=== PATIENT | male | born 1955 | race Caucasian/White ===

== ENCOUNTER 2021-08-02 10:35 | Inpatient (IN) | payer MEDICARE, OTHER ==
[~2021-08-02] VITALS: Ht 167.6 cm; Wt 92.1 kg
[~2021-08-02 10:35] MED LIST: ALPR0.5T PO; DIPH25ST4 PO; DULO20CA PO; OMEP20CA15 PO; ZOLP10TA2 PO
[2021-08-02 11:41] LABS: BASOPHILS % (AUTO) 0.7 % (0.0-2.0); HEMATOCRIT 46 % (39-51); HEMOGLOBIN 15.3 g/dL (13.5-17.5); LYMPHOCYTES # (AUTO) 0.7 K/uL (0.8-4.8); LYMPHOCYTES % (AUTO) 19.9 % (20.0-44.0); MEAN CORPUSCULAR HGB CONC 33 g/dl (31.0-36.0); MEAN CORPUSCULAR VOLUME 96 fL (80-96); MONOCYTES # (AUTO) 0.5 K/uL (0.1-1.30); MONOCYTES % (AUTO) 15.5 % (2.0-12.0); NEUTROPHILS # (AUTO) 2.3 K/uL (1.8-8.9); NEUTROPHILS % (AUTO) 63.9 % (43.0-81.0); PLATELET COUNT (AUTO) 128 K/uL (150-450); RED BLOOD CELL COUNT(AUTO) 4.79 MIL/uL (4.5-6.0); WHITE BLOOD COUNT (AUTO) 3.5 K/uL (4.3-11.0)
[2021-08-02 11:54] LABS: CALCIUM, SERUM 9.3 mg/dL (8.5-10.1); CARBON DIOXIDE 26 mmol/L (21-32); CHLORIDE 101 mmol/L (98-107); CREATININE 1.4 mg/dL (0.6-1.3); GLUCOSE 116 mg/dL (74-106); POTASSIUM 4.2 mmol/L (3.5-5.1); SODIUM SERUM 135 mmol/L (136-145); UREA NITROGEN, BLOOD 22 mg/dL (7-18)
[2021-08-02 12:00] LABS: ALANINE AMINOTRANSFERASE 93 U/L (12-78); ALBUMIN 3.8 g/dL (3.4-5.0); ALKALINE PHOSPHATASE 41 U/L (46-116); ASPARTATE AMINOTRANSFERASE 46 U/L (15-37); BILIRUBIN,DIRECT 0.2 mg/dL (0.0-0.2); BILIRUBIN,TOTAL 0.8 mg/dL (0.2-1.0); TOTAL PROTEIN, SERUM 7.9 g/dL (6.4-8.2)
[2021-08-02 13:03] LABS: LYMPHOCYTES % (MANUAL) 25 % (16-48); MONOCYTES % (MANUAL) 11 % (0-11.0); NEUTROPHILS % (MANUAL) 64 (42-76)
[2021-08-02] MEDS ORDERED: ACETAMINOPHEN ES 500 MG TABLET ONE (13:23)
[2021-08-02] MEDS ORDERED: ACETAMINOPHEN ES 500 MG TABLET PO ONE (13:30)
[2021-08-02] MEDS ORDERED: CEFTRIAXONE 1GM BAG (ER ONLY) 1 GM/50 ML PIGGYBACK IV ONE (14:00)
[2021-08-02] MEDS ORDERED: DOXYCYCLINE 100 MG VIAL ONE (14:03)
[2021-08-02] MEDS ORDERED: CEFTRIAXONE 1GM BAG (ER ONLY) 50 ML IV ONE (14:03)
[2021-08-02] MEDS: DOXYCYCLINE 100 MG in IV D5W 100 ML IV SCH ×3 (14:06→14:57)
[2021-08-02] MEDS ORDERED: IV NS 0.9% 500 ML IV ONE (14:30)
[2021-08-02] MEDS ORDERED: IV 1/2NS 1000 ML 1,000 ML IV PRN (16:00)
[2021-08-02] MEDS ORDERED: HYDROCODONE/APAP 5/325MG TABLET PO PRN (16:00)
[2021-08-02] MEDS ORDERED: NITROGLYCERIN 0.4 MG/TAB BOTTLE SL PRN (16:00)
[2021-08-02] MEDS ORDERED: MAG HYDROX/AL HYDROX/SIMETH 30 ML UDC PO PRN (16:00)
[2021-08-02] MEDS ORDERED: MORPHINE SULFATE INJ 2 MG/ML DISP.SYRIN IV PRN (16:00)
[2021-08-02] MEDS ORDERED: Z GUARD REMEDY 4 OZ OINT TP PRN (16:00)
[2021-08-02] MEDS ORDERED: MAGNESIUM HYDROXIDE 30 ML UDC PO PRN (16:00)
[2021-08-02] MEDS ORDERED: ONDANSETRON HCL/PF 4 MG/2 ML VIAL IVP PRN (16:00)
[2021-08-02 17:06] LABS: BILIRUBIN,URINE NEGATIVE (NEGATIVE); COLOR,URINE YELLOW (YELLOW); LEUKOCYTE ESTERASE ,URINE NEGATIVE (NEGATIVE); NITRITE, URINE NEGATIVE (NEGATIVE); PROTEIN,URINE TRACE mg/dl (NEGATIVE); UGLUCOSE NEGATIVE (NEGATIVE); UROBILINOGEN,URINE 0.2 EU/dL (0.2)
[2021-08-02 17:11] LABS: BACTERIA,URINE None seen /HPF (None Seen); MUCUS,URINE Many /LPF (None Seen); RBC,URINE 0-2 /HPF (0-2); SQUAMOUS EPITHELIAL CELL,UR 0-2 /HPF (None Seen); WBC,URINE 0-2 /HPF (0-3)
[2021-08-02 22:50] VITALS: BP 138/97
[2021-08-02] MEDS: ZOLPIDEM TARTRATE 5 MG TABLET PO PRN (23:23)
[2021-08-02] MEDS: ENOXAPARIN SODIUM 40 MG/0.4 ML DISP.SYRIN SQ SCH (23:26)
[2021-08-02] MEDS: ACETAMINOPHEN 325 MG TABLET PO PRN (23:55)
[2021-08-03] VITALS: BP 158/103
[2021-08-03 04:00] VITALS: BP 113/84
[2021-08-03 07:15] LABS: BASOPHILS % (AUTO) 0.5 % (0.0-2.0); EOSINOPHILS % (AUTO) 0.1 % (0.0-6.0); HEMATOCRIT 44 % (39-51); HEMOGLOBIN 14.7 g/dL (13.5-17.5); LYMPHOCYTES # (AUTO) 1.5 K/uL (0.8-4.8); LYMPHOCYTES % (AUTO) 42.7 % (20.0-44.0); MEAN CORPUSCULAR HGB CONC 34 g/dl (31.0-36.0); MEAN CORPUSCULAR VOLUME 96 fL (80-96); MONOCYTES # (AUTO) 0.6 K/uL (0.1-1.30); MONOCYTES % (AUTO) 15.6 % (2.0-12.0); NEUTROPHILS # (AUTO) 1.5 K/uL (1.8-8.9); NEUTROPHILS % (AUTO) 41.1 % (43.0-81.0); PLATELET COUNT (AUTO) 120 K/uL (150-450); RED BLOOD CELL COUNT(AUTO) 4.57 MIL/uL (4.5-6.0); WHITE BLOOD COUNT (AUTO) 3.5 K/uL (4.3-11.0)
[2021-08-03] MEDS: PANTOPRAZOLE 40 MG TABLET.DR PO SCH (07:30)
[2021-08-03 07:37] LABS: CALCIUM, SERUM 8.3 mg/dL (8.5-10.1); CREATININE 1.2 mg/dL (0.6-1.3); MAGNESIUM 1.8 mg/dL (1.8-2.4); PHOSPHORUS 3.7 mg/dL (2.5-4.9)
[2021-08-03] MEDS: DULOXETINE HCL 20 MG CAPSULE.DR PO SCH (08:16)
[2021-08-03] MEDS: CEFTRIAXONE 1 G in IV D5W 50 ML IV SCH (08:45)
[2021-08-03 09:16] LABS: BAND % (MANUAL) 1 % (0.0-5.0); LYMPHOCYTES % (MANUAL) 43 % (16-48); MONOCYTES % (MANUAL) 12 % (0-11.0); NEUTROPHILS % (MANUAL) 44 (42-76)
[2021-08-03] MEDS: AZITHROMYCIN 500 MG in IV D5W 250 ML IV SCH (09:50)
[2021-08-03 10:02] LABS: THYROID STIMULATING HORMONE 1.314 uIU/mL (0.358-3.74)
[2021-08-03 20:13] VITALS: BP 142/101
[2021-08-03] MEDS: ZOLPIDEM TARTRATE 5 MG TABLET PO PRN (21:22)
[2021-08-03] MEDS: ENOXAPARIN SODIUM 40 MG/0.4 ML DISP.SYRIN SQ SCH (21:22)
[2021-08-03 23:57] VITALS: BP 135/77
[2021-08-04 04:00] VITALS: BP 111/59
[2021-08-04 07:08] LABS: BASOPHILS % (AUTO) 0.4 % (0.0-2.0); EOSINOPHILS % (AUTO) 0.1 % (0.0-6.0); HEMATOCRIT 42 % (39-51); HEMOGLOBIN 13.9 g/dL (13.5-17.5); LYMPHOCYTES # (AUTO) 1.6 K/uL (0.8-4.8); LYMPHOCYTES % (AUTO) 48.3 % (20.0-44.0); MEAN CORPUSCULAR HGB CONC 33 g/dl (31.0-36.0); MEAN CORPUSCULAR VOLUME 95 fL (80-96); MONOCYTES # (AUTO) 0.4 K/uL (0.1-1.30); MONOCYTES % (AUTO) 12.2 % (2.0-12.0); NEUTROPHILS # (AUTO) 1.3 K/uL (1.8-8.9); PLATELET COUNT (AUTO) 126 K/uL (150-450); RED BLOOD CELL COUNT(AUTO) 4.37 MIL/uL (4.5-6.0); WHITE BLOOD COUNT (AUTO) 3.2 K/uL (4.3-11.0)
[2021-08-04] MEDS: PANTOPRAZOLE 40 MG TABLET.DR PO SCH (07:36)
[2021-08-04] MEDS: CEFTRIAXONE 1 G in IV D5W 50 ML IV SCH (08:14)
[2021-08-04 08:28] VITALS: BP 129/94
[2021-08-04] MEDS: DULOXETINE HCL 20 MG CAPSULE.DR PO SCH (08:44)
[2021-08-04 08:45] LABS: ALBUMIN 3.1 g/dL (3.4-5.0); BILIRUBIN,TOTAL 0.5 mg/dL (0.2-1.0); CALCIUM, SERUM 8.6 mg/dL (8.5-10.1); CREATININE 1.1 mg/dL (0.6-1.3); MAGNESIUM 1.8 mg/dL (1.8-2.4); PHOSPHORUS 3.8 mg/dL (2.5-4.9); POTASSIUM 4.1 mmol/L (3.5-5.1); TOTAL PROTEIN, SERUM 6.8 g/dL (6.4-8.2)
[2021-08-04] MEDS: AZITHROMYCIN 500 MG in IV D5W 250 ML IV SCH (09:07)
[2021-08-04] MEDS: ACETAMINOPHEN 325 MG TABLET PO PRN (11:27)
== END 2021-08-04 16:45 | disposition home or self-care (01) | DRG 193 ==
LOC: ER 10:38 → TELE 22:14 → MED 08-04 10:23
DX: J18.9 Pneumonia, unspecified organism (principal); N17.0 Acute kidney failure with tubular necrosis; I12.9 Hypertensive chronic kidney disease with stage 1 through stage 4 chronic kidney disease, or unspecified chronic kidney disease; N18.9 Chronic kidney disease, unspecified; Z20.822 Contact with and (suspected) exposure to COVID-19; I25.10 Atherosclerotic heart disease of native coronary artery without angina pectoris; F41.9 Anxiety disorder, unspecified; Z95.5 Presence of coronary angioplasty implant and graft; D69.6 Thrombocytopenia, unspecified; D46.9 Myelodysplastic syndrome, unspecified; R74.01 Elevation of levels of liver transaminase levels; E66.9 Obesity, unspecified; Z68.32 Body mass index [BMI] 32.0-32.9, adult; Z87.891 Personal history of nicotine dependence; G47.33 Obstructive sleep apnea (adult) (pediatric); R07.81 Pleurodynia
CPT/HCPCS: 36415; 71045-TC; 76700-TC; 80048-TC; 80053-TC; 80061-TC; 80076-TC; 81001; 83605-TC; 83735-TC; 84100-TC; 84439-TC; 84443-TC; 84484-TC; 85025-TC; 87040-TC; 87081-TC; 93307-TC; 97112-TC; 97116-TC; 97530-TC; C9803; G0378; J0456; J0696; J1650; J3490; J7060

== ENCOUNTER 2023-08-14 20:49 | Emergency (ER) | payer MEDICARE, OTHER ==
[~2023-08-14] VITALS: Ht 165.1 cm; Wt 93.0 kg
[2023-08-14 22:16] VITALS: BP 137/82; TEMP 89.1; O2SAT 98
[2023-08-14] MEDS ORDERED: AMOX-430 PO (23:00)
[2023-08-14] MEDS ORDERED: IBUPROFEN 600 MG TABLET ONE (23:49)
[2023-08-14] MEDS ORDERED: AMOX/CLAVULANATE 875 MG TABLET ONE (23:49)
[2023-08-14] MEDS: IBUPROFEN 600 MG TABLET PO ONE (23:51)
[2023-08-14] MEDS: AMOX/CLAVULANATE 875 MG TABLET PO ONE (23:51)
== END 2023-08-14 23:52 | disposition home or self-care (01) ==
LOC: ER 20:52
DX: H66.91 Otitis media, unspecified, right ear (principal); I10 Essential (primary) hypertension; Z79.899 Other long term (current) drug therapy

== ENCOUNTER 2023-08-23 12:25 | Emergency (ER) | payer MEDICARE, OTHER ==
[~2023-08-23] VITALS: Ht 167.6 cm; Wt 88.9 kg
[~2023-08-23 12:25] MED LIST changes: +AMOX-430 PO
[2023-08-23] MEDS ORDERED: diphenhydrAMINE HCL 50 MG/ML VIAL ONE (13:10)
[2023-08-23] MEDS ORDERED: EPINEPHRINE (1:1000) 1 MG/ML AMPUL ONE (13:10)
[2023-08-23] MEDS ORDERED: methylPREDNISolone SOD SUCC 40 MG/ML VIAL ONE (13:11)
[2023-08-23] MEDS ORDERED: FAMOTIDINE/PF INJ 20 MG/2 ML VIAL IV ONE (13:11)
[2023-08-23] MEDS: IV NS 0.9% 1,000 ML BAG IV ONE (13:30)
[2023-08-23] MEDS: diphenhydrAMINE HCL 50 MG/ML VIAL IV ONE (13:32)
[2023-08-23] MEDS: FAMOTIDINE/PF INJ 20 MG/2 ML VIAL IV ONE (13:33)
[2023-08-23] MEDS: EPINEPHRINE (1:1000) 1 MG/ML AMPUL SUBCUT ONE (13:34)
[2023-08-23] MEDS: methylPREDNISolone SOD SUCC 125 MG/2ML VIAL IV ONE (13:34)
[2023-08-23] MEDS ORDERED: FAMO-131 PO (15:04)
[2023-08-23] MEDS ORDERED: DIPH25CA83 PO (15:04)
[2023-08-23] MEDS ORDERED: EPIN0.3P3 IM (15:04)
[2023-08-23] MEDS ORDERED: PRED20TA PO (15:04)
[2023-08-23 15:57] VITALS: BP 115/75; TEMP 98; O2SAT 95
== END 2023-08-23 15:58 | disposition home or self-care (01) ==
LOC: ER 12:31
DX: L50.0 Allergic urticaria (principal); I10 Essential (primary) hypertension
CPT/HCPCS: 99285; 96372; 96374; 96361; 96375 ×2; J1200; J0171; J3490; J2920; J7030